=== PATIENT | male | born 1990 | race Two or more races ===

== ENCOUNTER 2016-04-28 17:32 | Emergency (ER) | payer OTHER ==
[2016-04-28 17:38] VITALS: BP 113/82; PULSE 96; RESP 14; TEMP 98.1; O2SAT 98
--- NOTE | 2016-04-28 17:56 | EDPHY ---
H & P Stated Complaint: "No urge to urinate" referred from [facility] Time Seen by Provider: 04/28/16 17:56 - Personal History Current Tetanus/Diphtheria Vaccine: No Current Tetanus Diphtheria and Acellular Pertussis (TDAP): No Tetanus Vaccine Date: < 10 years - Medical/Surgical History Hx Asthma: No Hx Chronic Respiratory Disease: No Hx Diabetes: No Hx Cardiac Disease: No Hx Renal Disease: No Hx Cirrhosis: No Hx Alcoholism: No Hx HIV/AIDS: No Hx Splenectomy or Spleen Trauma: No Other PMH: deviated septum repair, adrenal insufficency - Social History Smoking Status: Never smoked Constitutional: Initial Vital Signs Temperature (C) 36.7 C 04/28/16 17:35 Heart Rate 96 04/28/16 17:35 Respiratory Rate 14 04/28/16 17:35 Blood Pressure 113/82 H 04/28/16 17:35 O2 Sat (%) 98 04/28/16 17:35 O2 Delivery Mode Room Air Allergies/Adverse Reactions: No Known Allergies Allergy (Unverified 04/26/15 10:07) Home Medications: Medication Instructions Recorded Multivitamins [Multivitamin (*)] 1 each PO DAILY 05/08/15 Hydrocortisone [Cortef 10 mg (*)] 10 mg PO DAILY@1800 #30 tab 05/11/15 Hydrocortisone [Cortef 10 mg (*)] 20 mg PO DAILY@0900 #60 tab 05/11/15 Ibuprofen [Motrin (*)] 600 mg PO Q8 PRN #0 tab 05/11/15 Medical Decision Making ED Course/Re-evaluation: CHIEF COMPLAINT: No "urge to urinate" HISTORY OF PRESENT ILLNESS: The patient is a 26 y/o male, with a history of [place]'s disease, stating he has "reduced urge to urinate" over the last 10 days. He reports he is only urinating 1-2 times daily. He feels he is adequately hydrated and wonders if his symptoms are due to too high of a fludrocortisone dose. He currently takes 0.1mg daily. His labs and urine analysis from [facility] today are unremarkable. REVIEW OF SYSTEMS: A 10 point review of systems was performed and is negative with the exception of the elements mentioned in the history of present illness. PHYSICAL EXAM: HR, BP, O2 Sat, RR. Temp noted General Appearance: Alert, well hydrated, appropriate, and non-toxic appearing. Head: Atraumatic without scalp tenderness or obvious injury Eyes: Pupils equal, round, reactive to light and accommodation, EOMI, no trauma , no injection. Ears: Clear bilaterally, no perforation, normal landmarks Nose: Atraumatic, no rhinorrhea, clear. Throat: There is no erythema or exudates, no lesions, normal tonsils, mucus membranes moist. Neck: Supple, nontender, no lymphadenopathy. Respiratory: No retractions, no distress, no wheezes, and no accessory muscle use. Lungs are clear to auscultation bilaterally. Cardiovascular: Regular rate and rhythm, no murmurs, rubs, or gallops. Good capillary refill all extremities. Gastrointestinal: Abdomen is soft, nontender, non-distended, no masses, no rebound, no guarding, no peritoneal signs. Musculoskeletal: Normal active ROM of all extremities, atraumatic. Neurological: Alert, appropriate, and interactive. The patient has normal DTRs and non-focal cranial nerves, motor, sensory, and cerebellar exam. Skin: No rashes, good turgor, no nodules on palpation. 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 DIFFERENTIAL DIAGNOSIS: The differential diagnosis for the patient's reduced urine output included but was not limited to medication side effect, neurologic causes, dehydration, and infection. MEDICAL DECISION MAKING: This is a 26 y/o male with a history of [place]'s disease complaining of reduced urine output for the last 10 days. He is concerned his cortisone is causing his symptoms. He has no pain or difficulty emptying his bladder. Review of his outpatient labs today show nothing concerning. A pre-void bladder scan showed 250cc of urine. He was able to void completely without issue showing no evidence of obstruction. His vitals are within normal limits. We will not repeat labs at this time. 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 1850: Consulted with Dr. Fair's partner, fire lieutenant marine. She cannot think of any reason the cortisone would affect urine output. She recommends outpatient follow up and increase in fluid intake. I discussed this with the patient. He agrees with plan. Departure - Departure Disposition: Home, Routine, Self-Care Clinical Impression: decreased urinary output, Dehydration Condition: Good Instructions: Dehydration (ED) Additional Instructions: Increase fluid intake. Follow up with Dr. Fair this week. Referrals: Sonu Fair MD [Primary Care Provider] - As per Instructions Report Scribed for: Chad Lemon Report Scribed by: Lanie Andersen Date of Report: 04/28/16 Time of Report: 19:02
[2016-04-28] MEDS ORDERED: NS 1,000 ML IV ONE (18:04)
== END 2016-04-28 19:15 | disposition home or self-care (01) ==
DX: R34 Anuria and oliguria (principal); E86.0 Dehydration

== ENCOUNTER → 2016-12-12 | Outpatient (CLI) | payer OTHER ==
[~2016-12-12] MED LIST: GADOBUTROL 10 ML VIAL IVP ONE
== END ==
LOC: FIMAGING 18:24
PROVIDERS: ATTEND Internal Medicine Endocrinology, Diabetes & Metabolism
DX: E22.1 Hyperprolactinemia (principal)
CPT/HCPCS: A9585